=== PATIENT | female | born 1995 | race Caucasian/White ===

== ENCOUNTER 2016-09-19 00:08 | Emergency (ER) | payer MEDICAID ==
[2016-09-19 00:15] VITALS: O2SAT 100
[2016-09-19] MEDS ORDERED: Pepcid 20 MG VIAL IV ONE ×2 (00:20→00:27)
[2016-09-19] MEDS ORDERED: BENADRYL 50 MG/ML IV ONE (00:20)
[2016-09-19] MEDS ORDERED: BENADRYL 50 MG/ML ONE (00:26)
[2016-09-19] MEDS ORDERED: Sodium Chloride 0.9% 1000 ML 1,000 ML ONE (00:26)
--- NOTE | 2016-09-19 00:28 | ERPHSYRPT ---
- History of Present Illness Time Seen by Provider: 09/19/16 00:11 Source: patient Physician History: PATIENT IS 36 WEEKS GESTATION COMPLAINS OF GENERALIZED RASH ASSOCIATED WITH ITCHING OVER THE PAST HOUR. DENIES DIFFICULTY SWALLOWING OR BREATHING. STATES HAS HAD SIMILAR EPISODE IN THE PAST WITH UNKNOWN EXPOSURE. Timing/Duration: hour(s) Quality: itchy Severity: moderate Location: generalized Possible Causes: no cause identified Modifying Factors: Improves With: antihistamine (TOOK BENADRYL 25MG ORALLY) Associated Symptoms: change in skin texture Allergies/Adverse Reactions: No Known Drug Allergies Allergy (Verified 09/19/16 00:15) Home Medications: Pnv with Ca,No.74/Iron/FA [ Low Iron Tablet] 1 tab PO DAILY 02/25/15 [ History] Hx Tetanus, Diphtheria Vaccination/Date Given: Yes Hx Influenza Vaccination/Date Given: No Hx Pneumococcal Vaccination/Date Given: No - Review of Systems Constitutional: No Fever, No Chills Eyes: No Symptoms Ears, Nose, & Throat: No Symptoms Respiratory: No Symptoms, No Cough, No Dyspnea Cardiac: No Symptoms, No Chest Pain, No Edema, No Syncope Abdominal/Gastrointestinal: No Symptoms, No Abdominal Pain, No Nausea, No Vomiting, No Diarrhea Genitourinary Symptoms: , No Dysuria Musculoskeletal: No Back Pain, No Neck Pain Skin: No Rash Neurological: No Dizziness, No Focal Weakness, No Sensory Changes Psychological: No Symptoms Endocrine: No Symptoms All Other Systems: Reviewed and Negative - Past Medical History Pertinent Past Medical History: No Neurological History: No Pertinent History ENT History: No Pertinent History Cardiac History: No Pertinent History Respiratory History: No Pertinent History Endocrine Medical History: No Pertinent History Musculoskeletal History: No Pertinent History GI Medical History: No Pertinent History History: No Pertinent History Psycho-Social History: No Pertinent History Other Medical History: recent child 4 days ago vaginal delivery - Past Surgical History Past Surgical History: No Neuro Surgical History: No Pertinent History Cardiac: No Pertinent History Respiratory: No Pertinent History Gastrointestinal: No Pertinent History Genitourinary: No Pertinent History Musculoskeletal: No Pertinent History Female Surgical History: No Pertinent History - Social History Smoking Status: Never smoker Exposure to second hand smoke: No Drug Use: none Patient Lives Alone: No - Nursing Vital Signs Nursing Vital Signs: Initial Vital Signs Temperature 98.0 F Temperature Source Oral Pulse Rate 87 Respiratory Rate 16 Blood Pressure [Right Arm] 131/89 - Physical Exam General Appearance: mild distress, alert Eye Exam: PERRL/EOMI, eyes nml inspection Ears, Nose, Throat Exam: normal ENT inspection, pharynx normal, moist mucous membranes Neck Exam: normal inspection, non-tender, supple, full range of motion Respiratory Exam: normal breath sounds, lungs clear, No respiratory distress Cardiovascular Exam: regular rate/rhythm, normal heart sounds Gastrointestinal/Abdomen Exam: soft, normal bowel sounds, other (GRAVID), No tenderness Back Exam: normal inspection, normal range of motion, No CVA tenderness, No vertebral tenderness Extremity Exam: normal inspection, normal range of motion Neurologic Exam: alert, oriented x 3, cooperative, normal mood/affect, sensation nml, No motor deficits Skin Exam: warm, dry, other (THERE ARE DIFFUSE MACULAR RAISED LESIONS, HIVES OVER SKIN) SpO2 Interpretation: normal SpO2: 100 Oxygen Delivery: Room Air Ordered Tests: Active Orders 24 hr Category Date Time Status Heart Tones-ED STAT Care 09/19/16 00:30 Active IV Insertion STAT Care 09/19/16 00:20 Active Medication Summary Generic Name Dose Route Start Last Admin Trade Name Freq PRN Reason Stop Dose Admin Sodium Chloride 1,000 mls @ 200 mls/hr 09/19/16 00:30 09/19/16 00:34 Sodium Chloride 0.9% 1000 Ml IV 10/19/16 00:29 200 mls/hr .Q5H SUDHA Administration Discontinued Medications Generic Name Dose Route Start Last Admin Trade Name Freq PRN Reason Stop Dose Admin Diphenhydramine HCl 50 mg 09/19/16 00:20 09/19/16 00:34 Benadryl 50 Mg/Ml IV 09/19/16 00:21 50 mg STAT ONE Administration Diphenhydramine HCl Confirm 09/19/16 00:26 Benadryl 50 Mg/Ml Administered 09/19/16 00:27 Dose 50 mg .ROUTE .STK-MED ONE Famotidine 20 mg 09/19/16 00:20 09/19/16 00:34 Pepcid 20 Mg Vial IV 09/19/16 00:21 20 mg STAT ONE Administration Famotidine Confirm 09/19/16 00:27 Pepcid 20 Mg Vial Administered 09/19/16 00:28 Dose 20 mg IV .STK-MED ONE Sodium Chloride Confirm 09/19/16 00:26 Sodium Chloride 0.9% 1000 Ml Administered 09/19/16 00:27 Dose 1,000 mls @ ud .ROUTE .STK-MED ONE - Progress Progress: improved Progress Note: 09/19/16 00:28 PATIENT GIVEN IV FLUIDS NORMAL SALINE 200ML/HR, BENADRYL 50MG, PEPCID 20MG IV 09/19/16 01:08 RASH HAS MARKEDLY IMPROVED Counseled pt/family regarding: diagnosis, need for follow-up - Departure Time of Disposition: 01:10 Departure Disposition: Home Clinical Impression: ALLERGIC REACTION Condition: Stable Critical Care Time: No Referrals: MIRANDA PALMA [Primary Care Provider] - Additional Instructions: TAKE OVER THE COUNTER BENADRYL 50MG EVERY 4 HOURS NEEDED FOR ITCHING. PEPCID 20MG TWICE DAILY FOR 5 DAYS. CONSULT YOUR FAMILY PHYSICIAN FOR FOLLOWUP. RETURN TO EMERGENCY ROOM FOR RECURRENCE OF RASH OR ITCHING. Prescriptions: Famotidine 20 mg [Pepcid 20 MG] 20 mg PO BID #10 tablet
[2016-09-19] MEDS ORDERED: Sodium Chloride 0.9% 1000 ML 1,000 ML IV SCH (00:30)
[2016-09-19 01:09] VITALS: BP 129/67; PULSE 82
== END 2016-09-19 01:16 | disposition home health service (06) ==
LOC: ED 00:08
DX: T78.40XA Allergy, unspecified, initial encounter (principal); Z33.1 Pregnant state, incidental
CPT/HCPCS: 36000; 96360; 96361; 99284; J1200

== ENCOUNTER 2020-12-20 23:15 | Observation (INO) | payer MEDICAID ==
[2020-12-21 00:12] LABS: Amphetamine,Urine NEGATIVE (NEGATIVE); Barbiturate,Urine NEGATIVE (NEGATIVE); Benzodiazepine,Urine NEGATIVE (NEGATIVE); Cocaine,Urine NEGATIVE (NEGATIVE); Methadone,Urine NEGATIVE (NEGATIVE); Opiate,Urine NEGATIVE (NEGATIVE); PCP,Urine NEGATIVE (NEGATIVE); THC,Urine NEGATIVE (NEGATIVE)
[2020-12-21 00:40] LABS: Appearance CLEAR (CLEAR); Bilirubin NEGATIVE (NEGATIVE); Blood NEGATIVE Ery/ul (0-5); Epithelial Cells RARE /HPF (FEW); Glucose NEGATIVE (NEGATIVE); Ketones NEGATIVE (NEGATIVE); Leukocyte Esterase TRACE (NEGATIVE); Nitrite NEGATIVE (NEGATIVE); Protein,Urine Dip NEGATIVE (Negative); Specific Gravity 1.003 (1.005-1.025); Urobilinogen NEGATIVE mg/dL (0-1); WBC 0-2 /HPF (0-5)
[2020-12-21] MEDS ORDERED: TYLENOL 325 MG PO PRN (01:15)
[2020-12-21 08:12] VITALS: BP 101/61; PULSE 78; O2SAT 97
--- NOTE | 2020-12-21 08:12 | PCM.SSS ---
History of Present Illness - Chief Complaint Chief Complaint: ob check, abd pain/aching History of Present Illness: is a 25 year old female at 25 6/7 wks [address]GA of Dr Noel presented to [facility] last night c/o left lower abdominal pain. Pain was sharp and severe, sudden onset with no injury or inciting event. She denies any recent trauma, no vomiting, no diarrhea, no constipation, no blood in the stool. history of 2 previous deliveries and this was different than any other pain she has experience, no contraction, no vaginal bleeding or LOF. she is feeling much better this morning and has mild tenderness but pain is much improved. patient reports no complications with and had a normal anatomy u/s at 20 weeks per her report. - Review of Systems Constitutional: No Fever, No Chills Respiratory: No Cough, No Short Of Breath Cardiac: No Chest Pain, No Edema, No Syncope Abdominal/Gastrointestinal: Abdominal Pain, No Nausea, No Vomiting, No Diarrhea Genitourinary Symptoms: No Dysuria Skin: No Rash Medications & Allergies Home Medications: Home Medication List Vit,Rajiv 74/Iron/Folic [ Low Iron Tablet] 1 tab PO DAILY 02/25/15 [History Confirmed 12/21/20] Allergies/Adverse Reactions: Allergies Allergy/AdvReac Type Severity Reaction Status Date / Time No Known Drug Allergies Allergy Verified 12/21/20 00:19 - Past Medical History Past Medical History: No Neurological History: No Pertinent History ENT History: No Pertinent History Cardiac History: No Pertinent History Respiratory History: No Pertinent History Endocrine Medical History: No Pertinent History Musculoskelatal History: No Pertinent History GI Medical History: No Pertinent History History: No Pertinent History Pyscho-Social History: No Pertinent History Comment: recent child 4 days ago vaginal delivery - Past Surgical History Past Surgical History: No Neuro Surgical History: No Pertinent History Cardiac History: No Pertinent History Respiratory Surgery: No Pertinent History GI Surgical History: No Pertinent History Genitourinary Surgical Hx: No Pertinent History Musculskeletal Surgical Hx: No Pertinent History Female Surgical History: No Pertinent History - Social History Smoking Status: Never smoker Exposure to second hand smoke: No Alcohol: None, Rarely Drug Use: none - Physical Exam Vital Signs: Vital Signs - 24 hr Temp Pulse Resp BP BP Pulse Ox 12/21/20 05:00 98.0 F 85 18 108/52 96 06/02/21 23:50 98.4 F 91 H 18 118/59 99 General Appearance: no apparent distress, alert Neurologic Exam: alert, oriented x 3 Respiratory Exam: normal breath sounds, lungs clear, No respiratory distress Cardiovascular Exam: regular rate/rhythm, normal heart sounds, normal peripheral pulses Gastrointestinal/Abdomen Exam: soft, normal bowel sounds, tenderness (minimal LLQ), other (gravid) Extremity Exam: normal inspection, normal range of motion, pelvis stable Skin Exam: normal color, warm, dry, No rash Results - Labs Lab/Micro Results: Lab Results-Last 24 Hours 12/20/20 12/20/20 Range/Units 23:53 23:53 Urine Color COLORLESS (YELLOW) Urine Appearance CLEAR (CLEAR) Urine pH 8.0 (5-6) Ur Specific [place] 1.003 (1.005-1.025) Urine Protein NEGATIVE (Negative) Urine Ketones NEGATIVE (NEGATIVE) Urine Blood NEGATIVE (0-5) Aristides/ul Urine Nitrite NEGATIVE (NEGATIVE) Urine Bilirubin NEGATIVE (NEGATIVE) Urine Urobilinogen NEGATIVE (0-1) mg/dL Ur Leukocyte Esterase TRACE (NEGATIVE) Urine WBC (Auto) 0-2 (0-5) /HPF Urine RBC (Auto) NONE (0-2) /HPF U Epithel Cells (Auto) RARE (FEW) /HPF Urine Bacteria (Auto) NONE (NEGATIVE) /HPF Urine Culture Reflexed NO (NO) Urine Glucose NEGATIVE (NEGATIVE) mg/dL Urine Opiates Level NEGATIVE (NEGATIVE) Ur Methadone NEGATIVE (NEGATIVE) Urine Barbiturates NEGATIVE (NEGATIVE) Ur Phencyclidine (PCP) NEGATIVE (NEGATIVE) Urine Amphetamine NEGATIVE (NEGATIVE) U Benzodiazepine Level NEGATIVE (NEGATIVE) Urine Cocaine NEGATIVE (NEGATIVE) Urine Marijuana (THC) NEGATIVE (NEGATIVE) Assessment/Plan (1) Abdominal pain during in third trimester Current Visit: Yes Status: Acute Assessment & Plan: pain is improved, workup including fht and u/a negative, will obtain ultrasound for well being then discharge home is reassuring. Code(s): O26.893 - OTH RELATED CONDITIONS, THIRD TRIMESTER; R10.9 - UNSPECIFIED ABDOMINAL PAIN Hospital Summary - Vitals & Intake/Output Vital Signs: Vital Signs Temperature 98.0 F 12/21/20 05:00 Pulse Rate 85 12/21/20 05:00 Respiratory Rate 18 12/21/20 05:00 Blood Pressure 108/52 12/21/20 05:00 O2 Sat by Pulse Oximetry 96 12/21/20 05:00 Intake & Output: Intake & Output 12/18/20 12/19/20 12/20/20 12/21/20 11:59 11:59 11:59 11:59 Intake Total 350 Balance 350 Weight 64.802 kg - Lab Lab Results-Last 24 Hrs: Lab Results-Last 24 Hours 12/20/20 12/20/20 Range/Units 23:53 23:53 Urine Color COLORLESS (YELLOW) Urine Appearance CLEAR (CLEAR) Urine pH 8.0 (5-6) Ur Specific [place] 1.003 (1.005-1.025) Urine Protein NEGATIVE (Negative) Urine Ketones NEGATIVE (NEGATIVE) Urine Blood NEGATIVE (0-5) Aristides/ul Urine Nitrite NEGATIVE (NEGATIVE) Urine Bilirubin NEGATIVE (NEGATIVE) Urine Urobilinogen NEGATIVE (0-1) mg/dL Ur Leukocyte Esterase TRACE (NEGATIVE) Urine WBC (Auto) 0-2 (0-5) /HPF Urine RBC (Auto) NONE (0-2) /HPF U Epithel Cells (Auto) RARE (FEW) /HPF Urine Bacteria (Auto) NONE (NEGATIVE) /HPF Urine Culture Reflexed NO (NO) Urine Glucose NEGATIVE (NEGATIVE) mg/dL Urine Opiates Level NEGATIVE (NEGATIVE) Ur Methadone NEGATIVE (NEGATIVE) Urine Barbiturates NEGATIVE (NEGATIVE) Ur Phencyclidine (PCP) NEGATIVE (NEGATIVE) Urine Amphetamine NEGATIVE (NEGATIVE) U Benzodiazepine Level NEGATIVE (NEGATIVE) Urine Cocaine NEGATIVE (NEGATIVE) Urine Marijuana (THC) NEGATIVE (NEGATIVE) - Discharge Disposition: Home, Self-Care Condition: Stable Prescriptions: Continue Vit,Rajvi 74/Iron/Folic [ Low Iron Tablet] 1 tab PO DAILY Follow up with: MIRANDA NOEL [Primary Care Provider] -
--- NOTE | 2020-12-21 09:07 | XRAY ---
Indication: Pain. well-being. Two-dimensional limited OB ultrasound performed. Comparison: None Single intrauterine in breech presentation with heart rate 142 BPM. Four-quadrant SHELLIE 12.4 cm. Posterior placenta without abruption/previa. Cervical length is 4.3 cm. No anatomy evaluated or measurements obtained. Images of the maternal urinary bladder demonstrates minimal intraluminal echogenic debris. Impression: Single viable intrauterine as detailed.
== END 2020-12-21 09:18 | disposition home or self-care (01) ==
LOC: OB 23:15
PROVIDERS: ADMIT Family Medicine; ATTEND Family Medicine
DX: O26.892 Other specified pregnancy related conditions, second trimester (principal); Z3A.25 25 weeks gestation of pregnancy; R10.32 Left lower quadrant pain
CPT/HCPCS: 76805; 80307; 81001; G0378; A9270-GY